=== PATIENT | female | born 1980 | race Caucasian/White ===

== ENCOUNTER 2023-09-01 03:02 | Emergency (ER) | payer OTHER ==
[~2023-09-01] VITALS: Ht 182.9 cm; Wt 111.0 kg
[2023-09-01 04:39] VITALS: BP 130/96; PULSE 94; RESP 18; TEMP 98.6; O2SAT 98
[2023-09-01] MEDS ORDERED: ONDANSETRON HCL 4 MG/2 ML VIAL IV ONE (04:45)
[2023-09-01] MEDS ORDERED: KETOROLAC TROMETH 30 MG/ML 1ML VIAL IV ONE (04:45)
[2023-09-01] MEDS ORDERED: MORPHINE SULFATE INJ 2 MG/ml SYRG IM ONE (04:45)
[2023-09-01] MEDS ORDERED: BUTA-280 OR (04:49)
[2023-09-01] MEDS ORDERED: ZOFR4T PO (04:49)
[2023-09-01] MEDS: HYDROcodone-ACET 5/325MG TAB PO ONE (05:00)
[2023-09-01] MEDS: KETOROLAC TROMETH 60MG/2ML VIAL IM ONE (05:22)
[2023-09-01] MEDS: PROCHLORPERAZINE EDISYLATE 5 MG/ML 2ML VIAL IM ONE (05:22)
[2023-09-01] MEDS: SODIUM CHLORIDE 0.9% 1,000 ML IV ONE (05:34)
== END 2023-09-01 06:05 | disposition home or self-care (01) ==
LOC: ER 03:02
DX: G43.909 Migraine, unspecified, not intractable, without status migrainosus (principal)
CPT/HCPCS: 96372; 99284; J0780; J1885; J7030